=== PATIENT | male | born 1945 | race Caucasian/White ===

== ENCOUNTER → 2023-11-28 | Outpatient (CLI) | payer MEDICARE, BC ==
[~2023-11-28] MED LIST: LIDOCAINE 1% MDV 20ML VIAL As Ordered ONE
[2023-11-28 07:40] VITALS: TEMP 97.8
[2023-11-28 08:09] LABS: INR 0.99; PARTIAL THROMBOPLASTIN TIME 30.6 SECONDS (24.8-34.2); PROTHROMBIN TIME 12.8 SECONDS (12.5-14.5)
[2023-11-28 09:10] VITALS: BP 134/67; O2SAT 96
== END ==
LOC: M IRPRO 07:16
PROVIDERS: ATTEND Internal Medicine Hematology & Oncology
DX: R19.00 Intra-abdominal and pelvic swelling, mass and lump, unspecified site (principal); R52 Pain, unspecified; M79.89 Other specified soft tissue disorders; R59.9 Enlarged lymph nodes, unspecified